=== PATIENT | female | born 1965 | race African-American/Black ===

== ENCOUNTER 2019-01-27 09:40 | Emergency (ER) | payer OTHER ==
[2019-01-27 10:03] VITALS: BP 141/85; PULSE 65; TEMP 97.7; BMI 25.2
[2019-01-27] MEDS ORDERED: DEXAMETHASONE LIQUID 0.5 MG/5 ML 240 ML BULK BOTTLE PO ONE (11:27)
[2019-01-27] MEDS ORDERED: DEXAMETHASONE SOD PHOSPHATE 10 MG/1 ML VIAL ONE (11:31)
--- NOTE | 2019-01-27 11:40 | PDOC ---
History of Present Illness - General Chief Complaint: Rash Stated Complaint: RASH Time Seen by Provider: 01/27/19 11:07 History Source: Patient Exam Limitations: Clinical Condition - History of Present Illness Initial Comments: 01/27/19 11:42 Patient with no significant past medical history present with complaint of 2 months history of whole-body itching and rash to face and upper chest and upper back which has been intermittent. Patient was seen by PCP month ago for symptoms and given Benadryl to take as needed for itching with ENT follow-up for ALLERGY testing by patient reported clinic did not take her insurance. Patient reported she had cramping in the tongue with feeling of swelling to tongue overnight after eating a family member's house. Denies shortness of breath, choking sensation or difficulty breathing. Denies any other symptoms Timing/Duration: other (2 months) Past History - Past Medical History Allergies/Adverse Reactions: Allergies Allergy/AdvReac Type Severity Reaction Status Date / Time Penicillins Allergy Verified 01/27/19 10:03 Home Medications: Ambulatory Orders Hydroxyzine HCl 25 mg PO Q8H PRN #20 tablet 01/27/19 Prednisone [Deltasone] 20 mg PO BID 4 Days #8 tablet 01/27/19 COPD: No - Suicide/Smoking/Psychosocial Hx Smoking History: Never smoked Hx Alcohol Use: No Drug/Substance Use Hx: No Review of Systems - Review of Systems Able to Perform ROS?: Yes Is the patient limited Azeri proficient: No Constitutional: No: Chills, Fever, Malaise HEENTM: Yes: Symptoms Reported, See HPI, Other (tongue cramping). No: Eye Pain , Blurred Vision, Tearing, Recent change in vision, Double Vision, Cataracts, Ear Pain, Ocular Prothesis, Ear Discharge, Nose Pain, Nose Congestion, Tinnitus , Nose Bleeding, Hearing Loss, Throat Pain, Throat Swelling, Mouth Pain, Dental Problems, Difficulty Swallowing, Mouth Swelling Cardiac (ROS): No: Symptoms Reported, See HPI, Chest Pain, Edema, Irregular Heart Rate, Lightheadedness, Palpitations, Syncope, Chest Tightness, Other ABD/GI: No: Nausea, Vomiting Integumentary: Yes: See HPI, Pruritus, Rash. No: Change in Color, Erythema All Other Systems: Reviewed and Negative *Physical Exam - Vital Signs Last Vital Signs Temp Pulse Resp BP Pulse Ox 97.7 F 65 16 141/85 100 01/27/19 10:00 01/27/19 10:00 01/27/19 10:00 01/27/19 10:00 01/27/19 10:00 - Physical Exam Comments: 01/27/19 11:45 GENERAL: Well developed, well nourished. Awake and alert. No acute distress. HEENT: Normocephalic, atraumatic. PERRLA, EOMI. No conjunctival pallor. Sclera are non-icteric. Moist mucous membranes. Oropharynx is clear. NECK: Supple. Full ROM. CARDIOVASCULAR: Regular rate and rhythm. No murmurs, rubs, or gallops. Distal pulses are 2+ and symmetric. PULMONARY: No evidence of respiratory distress. Lungs clear to auscultation bilaterally. No wheezing, rales or rhonchi. ABDOMINAL: Soft. Non-tender. Non-distended. No rebound or guarding. No organomegaly. Normoactive bowel sounds. MUSCULOSKELETAL Normal range of motion at all joints. SKIN: Warm and dry. Normal capillary refill. Diffuse vesicular rashes or skin color to upper chest and upper back area without excoriations. NEUROLOGICAL: Alert, awake, appropriate. Gait is normal without ataxia. PSYCHIATRIC: Cooperative. Good eye contact. Appropriate mood General Appearance: Yes: Nourished, Appropriately Dressed. No: Apparent Distress Medical Decision Making - Medical Decision Making 01/27/19 11:45 Patient with no significant past medical history present with complaint of 2 months history of intermittent rash and itching all over the body of unknown etiology. Exam significant for diffuse vesicular rashes without excoriations upper chest, anterior neck area and upper back without any pain wound. Patient in no acute distress or evidence of anaphylactic reaction. Decadron 10 mg by mouth ordered. Patient is stable for discharge on prednisone and hydroxyzine for itching and rash with dermatology follow-up. *DC/Admit/Observation/Transfer Diagnosis at time of Disposition: Dermatitis - Discharge Dispostion Disposition: HOME Condition at time of disposition: Stable Decision to Admit order: No - Prescriptions Prescriptions: Hydroxyzine HCl 25 mg PO Q8H PRN #20 tablet PRN Reason: itching Prednisone [Deltasone] 20 mg PO BID 4 Days #8 tablet - Referrals Referrals: Leslie Murcia MD [Staff Physician] - - Patient Instructions Additional Instructions: Take medications as prescribed for rash and itching. Follow-up referred dermatology as soon as possible - Post Discharge Activity
== END 2019-01-27 11:48 | disposition home or self-care (01) ==
LOC: JERFT 09:40
DX: L30.9 Dermatitis, unspecified (principal)
CPT/HCPCS: 99281-25

== ENCOUNTER 2021-09-27 08:04 | Emergency (ER) | payer OTHER ==
[2021-09-27 08:10] VITALS: BP 155/98; PULSE 61; TEMP 97.6; BMI 27.4
[2021-09-27] MEDS ORDERED: ONDANSETRON *ODT* 4 MG TABLET ONE (10:02)
[2021-09-27] MEDS ORDERED: ONDANSETRON *ODT* 4 MG TABLET SL ONE (10:03)
[2021-09-27 10:17] LABS: EPI CELLS 13 /uL (0-25.1); HYALINE CASTS 1 /uL (0-3.1); PH,URINE 5.5 (5.0-8.0); URINE APPEARANCE CLEAR; URINE BACTERIA 10 /uL (0-1359); URINE BILIRUBIN NEGATIVE (NEGATIVE); URINE COLOR YELLOW; URINE GLUCOSE (UA) NEGATIVE (NEGATIVE); URINE KETONE NEGATIVE (NEGATIVE); URINE LEUK ESTERASE 2+ (NEGATIVE); URINE NITRITE NEGATIVE (NEGATIVE); URINE PROTEIN NEGATIVE (NEGATIVE); URINE RBC 13 /uL (0-23.9); URINE UROBILINOGEN 0.2 mg/dL (0.2-1.0); URINE WBC 76 /uL (0-25.8)
[2021-09-27 10:21] LABS: HEMATOCRIT 39.4 % (32.4-45.2); HEMOGLOBIN 13.5 GM/dL (10.7-15.3); MCHC 34.2 g/dl (32.0-36.0); MEAN CELL VOLUME 87.6 fl (80-96); MEAN PLT VOLUME 8.1 fl (7.5-11.1); PLATELET COUNT 254 10^3/uL (134-434); RBC 4.49 M/mm3 (3.60-5.2); RDW 13.6 % (11.6-15.6); WHITE BLOOD COUNT 5.2 K/mm3 (4.0-10.0)
[2021-09-27 11:16] LABS: ALBUMIN 3.8 g/dl (3.4-5.0); ALK PHOS 72 U/L (45-117); ANION GAP 4 MMOL/L (8-16); BILIRUBIN,TOTAL 0.3 mg/dL (0.2-1); BLOOD UREA NITROGEN 12.1 mg/dL (7-18); CALCIUM 8.8 mg/dL (8.5-10.1); CHLORIDE 106 mmol/L (98-107); CO2 32 mmol/L (21-32); CREATININE 0.8 mg/dL (0.55-1.3); GLUCOSE,RANDOM 92 mg/dL (74-106); SGOT/AST 18 U/L (15-37); SGPT/ALT 23 U/L (13-61); SODIUM 142 mmol/L (136-145); TOT PROT 7.1 g/dl (6.4-8.2)
== END 2021-09-27 13:22 | disposition home or self-care (01) ==
LOC: JER 08:04
DX: K30 Functional dyspepsia (principal)
CPT/HCPCS: 36415; 80053; 81003; 82550; 82553; 84484; 85027; 87086; 93005; 93010; 99283-25; Q0162

== ENCOUNTER 2022-05-28 13:30 | Emergency (ER) | payer OTHER ==
[2022-05-28 13:46] VITALS: BP 128/85; PULSE 70; RESP 18; TEMP 98.1; BMI 26.9
== END 2022-05-28 14:45 | disposition home or self-care (01) ==
LOC: JER 13:30
DX: U07.1 COVID-19 (principal)
CPT/HCPCS: 99283-25; C9803-CS; U0003; U0005

== ENCOUNTER → 2024-09-11 | Day surgery (SDC) | payer OTHER | END | disposition home or self-care (01) | LOC: FMAMMOTONE 10:00 | PROVIDERS: ATTEND Nurse Practitioner Family | PROC: 0HBT3ZX Excision of Right Breast, Percutaneous Approach, Diagnostic (ICD-10-PCS; principal; 2024-09-11) | DX: N60.11 Diffuse cystic mastopathy of right breast (principal); N60.31 Fibrosclerosis of right breast; N60.81 Other benign mammary dysplasias of right breast; N64.89 Other specified disorders of breast; R92.1 Mammographic calcification found on diagnostic imaging of breast | CPT/HCPCS: 19081; 76098-TC-FY; 87899; 88305-TC; A4648 ==